=== PATIENT | female | born 1955 | race Hispanic/Latino ===

== ENCOUNTER → 2018-01-10 | Outpatient (CLI) | payer OTHER ==
--- NOTE | 2018-01-10 15:01 | Diagnostic Imaging Report ---
EXAM: Transabdominal and Transvaginal Pelvic Ultrasound INDICATION: \S\PELVIC PAIN COMPARISON: None TECHNIQUE: Grayscale transverse and sagittal transabdominal and transvaginal images were obtained of the pelvis. Transvaginal imaging was medically necessary to better evaluate the endometrium and the adnexa. CLINICAL HISTORY: 62 year old A0; last menstrual period: Hysterectomy in 1995. FINDINGS: Uterus is surgically absent. Right ovary: Not visualized. Left ovary: Not visualized. Adnexa: Normal Cul-de-sac: No free fluid IMPRESSION: Unremarkable pelvic ultrasound exam. Status post hysterectomy. Ovaries are not visualized, limiting evaluation. Signed by: Dr. Hitesh Peraza MD on 01/10/2018 2:58 PM
== END ==
LOC: US 12:53
PROVIDERS: ATTEND Obstetrics & Gynecology Obstetrics
DX: R10.2 Pelvic and perineal pain (principal)
CPT/HCPCS: 76830; 76856

== ENCOUNTER → 2018-02-10 | Outpatient (CLI) | payer OTHER ==
--- NOTE | 2018-02-10 15:57 | Diagnostic Imaging Report ---
#[id number] - MGSCRBIL #BILATERAL DIGITAL SCREENING MAMMOGRAM WITH CAD: 02/10/2018 CLINICAL: Routine screening. Comparison is made to exams dated: 02/10/2017 mammogram and 11/11/2015 mammogram - [facility]. Current study contains 4 films. There are scattered fibroglandular elements in both breasts. Current study was also evaluated with a Computer Aided Detection (CAD) system. There are benign intramammary nodes in both breasts. There also are benign scattered calcifications in both breasts. No significant masses, calcifications, or other findings are seen in either breast. There has been no significant interval change. IMPRESSION: BENIGN There is no mammographic evidence of malignancy. A 1 year screening mammogram is recommended. The patient will be notified by letter of the results. Johnny kuo/caty:02/10/2018 14:41:59 Recapper: Rosangela GILLIAM(Gigi)(M), [facility] letter sent: Compared to Prior B9 Mammogram BI-RADS: 2 Benign
== END ==
LOC: MAMMO 11:48
PROVIDERS: ATTEND Obstetrics & Gynecology Obstetrics
DX: Z12.31 Encounter for screening mammogram for malignant neoplasm of breast (principal)
CPT/HCPCS: 77067

== ENCOUNTER 2018-07-11 17:29 | Emergency (ER) | payer BC, OTHER ==
[~2018-07-11] VITALS: Ht 157.5 cm; Wt 90.7 kg
--- OUTSIDE RECORDS SUMMARY | 2018-07-11 17:32 | XMS REPORT ---
Author Author [facility] Address Unknown Phone Unavailable Care Team Providers Care Job Printer Apprentice Name Role Phone Srinivas SAHNI Unavailable Unavailable ALEXANDER CUNNINGHAM Unavailable Unavailable Problems This patient has no known problems. Allergies, Adverse Reactions, Alerts This patient has no known allergies or adverse reactions. Medications This patient has no known medications. Results Test Description Test Time Test Comments Text Results Atomic Results Result Comments MAMMOGRAPHY DIGITAL SCR BILAT 2018-02-10 12:42:00 [place] [address] Patient Name: PHILIPPE MITCHELL MR #: [id number] : 1955 Age/Sex: 62/F Req #: [id number] Adm Physician: Ordered by: ANNAMARIE SAHNI M.D. Report #: [id number] Location: MAMMO Room/Bed: Procedure: MG/MAMMOGRAPHY DIGITAL SCR BILAT Exam Date: 02/10/18 Exam Time: 1216 REPORT STATUS: Signed #[id number] - MGSCRBIL #BILATERAL DIGITAL SCREENING MAMMOGRAM WITH CAD: 02/10/2018 CLINICAL: Routine screening. Comparison is made to exams dated: 02/10/2017 mammogram and 11/11/2015 mammogram - [facility]. Current study contains 4 films. There are scattered fibroglandular elements in both breasts. Current study was also evaluated with a Computer Aided Detection (CAD) system. There are benign intramammary nodes in both breasts. There also are benign scattered calcifications in both breasts. No significant masses, calcifications, or other findings are seen in either breast. There has been no significant interval change. IMPRESSION: BENIGN There is no mammographic evidence of malignancy. A 1 year screening mammogram is recommended. The patient will be notified by letter of the results. Astrid kuo/princess:02/10/2018 14:41:59 Umbrella Frame Maker: Rosangela GILLIAM(R)(Nany), [facility] letter sent: Compared to Prior B9 Mammogram BI-RADS: 2 Benign Dictated By: ASTRID SAXENA DO 1441 Transcribed By: PRINCESS on 02/10/18 1441 COPY TO: ANNAMARIE SAHNI M.D. US TRANSVAGINAL 2018-01-10 14:37:00 [place] [address] Patient Name: PHILIPPE MITCHELL MR #: [id number] : 1955 Age/Sex: 62/F Req #: [id number] Adm Physician: Ordered by: ANNAMARIE SAHNI M.D. Report #: [id number] Location: Room/Bed: Procedure: [id number] US/US TRANSVAGINAL Exam Date: Exam Time: REPORT STATUS: Signed EXAM: Transabdominal and Transvaginal Pelvic Ultrasound INDICATION: COMPARISON: None TECHNIQUE: Grayscale transverse and sagittal transabdominal and transvaginal images were obtained of the pelvis. Transvaginal imaging was medically necessary to better evaluate the endometrium and the adnexa. CLINICAL HISTORY: 62 year old A0; last menstrual period: Hysterectomy in 1995. FINDINGS: Uterus is surgically absent. Right ovary: Not visualized. Left ovary: Not visualized. Adnexa: Normal Cul-de-sac: No free fluid IMPRESSION: Unremarkable pelvic ultrasound exam. Status post hysterectomy. Ovaries are not visualized, limiting evaluation. Signed by: Dr. Hitesh Márquez MD on 01/10/2018 2:58 PM Dictated By: HITESH MÁRQUEZ MD 57 Transcribed By: USHA on 01/10/181457 COPY TO: ANNAMARIE SAHNI M.D. US PELVIS COMPLETE NON OB 2018-01-10 14:37:00 [place] [address] Patient Name: PHILIPPE MITCHELL MR #: [id number] : 1955 Age/Sex: 62/F Req #: [id number] Adm Physician: Ordered by: ANNAMARIE SAHNI M.D. Report #: [id number] Location: Room/Bed: Procedure: [id number] US/US PELVIS COMPLETE NON OB Exam Date: Exam Time: REPORT STATUS: Signed EXAM: Transabdominal and Transvaginal Pelvic Ultrasound INDICATION: COMPARISON: None TECHNIQUE: Grayscale transverse and sagittal transabdominal and transvaginal images were obtained of the pelvis. Transvaginal imaging was medically necessary to better evaluate the endometrium and the adnexa. CLINICAL HISTORY: 62 year old A0; last menstrual period: Hysterectomy in 1995. FINDINGS: Uterus is surgically absent. Right ovary: Not visualized. Left ovary: Not visualized. Adnexa: Normal Cul-de-sac: No free fluid IMPRESSION: Unremarkable pelvic ultrasound exam. Status post hysterectomy. Ovaries are not visualized, limiting evaluation. Signed by: Dr. Hitesh Márquez MD on 01/10/2018 2:58 PM Dictated By: HITESH MÁRQUEZ MD 57 Transcribed By: USHA on 01/10/181457 COPY TO: ANNAMARIE SAHNI M.D. MAMMOGRAPHY DIGITAL SCR BILAT [place] [address] Patient Name: PHILIPPE MITCHELL MR #: [id number] : 1955 Age/Sex: 61/F Req #: [id number] Adm Physician: Ordered by: ALEXANDER CUNNINGHAM MD Report #: [id number] Location: MAMMO Room/Bed: Procedure: [id number] MG/MAMMOGRAPHY DIGITAL SCR BILAT Exam Date: 02/10/17 Exam Time: 1133 REPORT STATUS: Signed #[id number] - MGSCRBIL #BILATERAL DIGITAL SCREENING MAMMOGRAM WITH CAD: 02/10/2017 CLINICAL: Routine screening. Comparison is made to exams dated: 11/11/2015 mammogram and 10/03/2014 mammogram - [facility]. Current study contains 4 films. There are scattered fibroglandular elements in both breasts. Current study was also evaluated with a Computer Aided Detection (CAD) system. There are benign intramammary nodes in both breasts. There also are benign scattered calcifications in both breasts. No significant masses, calcifications, or other findings are seen in either breast. There has been no significant interval change. IMPRESSION: BENIGN There is no mammographic evidence of malignancy. A 1 year screening mammogram is recommended. The patient will be notified by letter of the results. Astrid kuo/princess:02/27/2017 15:17:15 Umbrella Frame Maker: Rosangela RÍOS)(Nany), [facility] letter sent: Compared to Prior B9 Mammogram BI-RADS: 2 Benign Dictated By: ASTRID SAXENA DO 1517 Transcribed By: PRINCESS on 02/27/17 7937 COPY TO: ALEXANDER CUNNINGHAM MD
[2018-07-11 19:37] LABS: BASOPHILS # (AUTO) 0.1 (0.0-0.1); BASOPHILS % 0.5 % (0.0-1.0); EOSINOPHILS # (AUTO) 1.2 (0.0-0.4); HEMOGLOBIN 15.7 g/dL (12.0-16.0); LYMPHOCYTES # (AUTO) 3.9 (1.0-3.2); LYMPHOCYTES % 33.9 % (18.0-39.1); MEAN CORPUSCULAR HEMOGLOBIN 33.1 pg (28-32); MEAN CORPUSCULAR HGB CONC 33.4 g/dL (31-35); MEAN CORPUSCULAR VOLUME 99.2 fL (81-99); MONOCYTES # (AUTO) 0.8 (0.2-0.8); MONOCYTES % 6.8 % (4.4-11.3); NEUTROPHILS # (AUTO) 5.6 (2.1-6.9); NEUTROPHILS % 48.6 % (38.7-80.0); PLATELET COUNT 238 x10e3/uL (140-360); RED BLOOD COUNT 4.74 x10e6/uL (3.6-5.1); RED CELL DISTRIBUTION WIDTH 11.9 % (11.7-14.4)
[2018-07-11 19:41] LABS: CLARITY,URINE SL CLOUDY (CLEAR); COLOR,URINE YELLOW (YELLOW); LEUKOCYTE ESTERASE ,URINE TRACE (NEGATIVE); NITRITE,URINE NEGATIVE (NEGATIVE)
[2018-07-11 19:42] LABS: BILIRUBIN,URINE NEGATIVE (NEGATIVE); KETONES,URINE TRACE (NEGATIVE); PROTEIN,URINE DIPSTICK NEGATIVE (NEGATIVE); URINE UROBILINOGEN 0.2 mg/dL (0.2 - 1)
[2018-07-11 19:52] LABS: ALANINE AMINOTRANSFERASE 40 IU/L (0-55); ALBUMIN 3.8 g/dL (3.5-5.0); ALBUMIN/GLOBULIN RATIO 1.1 (0.8-2.0); ALKALINE PHOSPHATASE 65 IU/L (40-150); AMYLASE 56 U/L (25-125); ANION GAP 18.1 mmol/L (8-16); BACTERIA,URINE MODERATE /HPF; BLOOD UREA NITROGEN 6 mg/dL (7-26); BUN/CREATININE RATIO 10 (6-25); CALCIUM 10.1 mg/dL (8.4-10.2); CARBON DIOXIDE 25 mmol/L (22-29); CHLORIDE 102 mmol/L (98-107); CREATINE KINASE 46 IU/L (29-168); CREATININE, SERUM 0.62 mg/dL (0.57-1.11); EPITHELIAL CELLS,URINE FEW /LPF; EST GLOMERULAR FILTRATION RATE > 60 ML/MIN (60-); GLUCOSE 115 mg/dL (74-118); LIPASE 33 U/L (8-78); MUCUS,URINE FEW (RARE); POTASSIUM 4.1 mmol/L (3.5-5.1); RBC,URINE 0-5 /HPF (0-5); SODIUM 141 mmol/L (136-145)
--- NOTE | 2018-07-11 20:52 | Diagnostic Imaging Report ---
EXAM: Right Upper Quadrant Ultrasound INDICATION: ^ABD PAIN COMPARISON: None. TECHNIQUE: Transverse and longitudinal images of the right upper abdomen were obtained. FINDINGS: Liver: Size: 15.2 cm in the right midclavicular line, normal Appearance: Increased echogenicity, smooth contour Mass: No focal masses Gallbladder: Stones/Sludge: None Wall: 0.2 cm Appearance: No pericholecystic fluid or hydrops. Sonographic Nina's Sign: Negative Bile Ducts: Intrahepatic Ducts: No dilatation Extrahepatic Ducts: Common bile duct measures 0.4 cm, no dilatation Pancreas: Visualized portions of the pancreatic head, neck and proximal body are normal. Right Kidney: Size: 10.1 x 4.8 x 4.1 cm Echogenicity: Normal Parenchymal thickness: Normal Collecting system: No hydronephrosis Stones: None Cyst/Mass: None Vessels: Aorta: Visualized portions are normal Inferior Vena Cava: Visualized portions are normal Main Portal Vein: 0.7 cm, normal size with hepatopetal flow. Free Fluid: No ascites or pleural effusion IMPRESSION: 1. Diffuse hepatic steatosis without focal mass. 2. Normal gallbladder. Signed by: Dr. Mack Monroe M.D. on 07/11/2018 8:48 PM
[2018-07-11 22:16] VITALS: BP 150/78
== END 2018-07-11 22:40 | disposition home or self-care (01) ==
LOC: ER 17:29
DX: R10.11 Right upper quadrant pain (principal); R11.0 Nausea; N30.90 Cystitis, unspecified without hematuria; E11.9 Type 2 diabetes mellitus without complications; E03.9 Hypothyroidism, unspecified; E78.5 Hyperlipidemia, unspecified
CPT/HCPCS: 36415; 76705; 80053; 81001; 82150; 82550; 82553; 83690; 84484; 85025; 93005; 99283

== ENCOUNTER → 2019-11-14 | Outpatient (CLI) | payer MEDICARE, OTHER | LOC: MAMMO 07:57 | PROVIDERS: ATTEND Internal Medicine | DX: Z12.31 Encounter for screening mammogram for malignant neoplasm of breast (principal) | CPT/HCPCS: 77067 ==

== ENCOUNTER → 2024-03-22 | Outpatient (REF) | payer MEDICARE, OTHER | LOC: MAMMO 13:07 | PROVIDERS: ATTEND Student in an Organized Health Care Education/Training Program | DX: Z12.31 Encounter for screening mammogram for malignant neoplasm of breast (principal) | CPT/HCPCS: 77067 ==

== ENCOUNTER → 2024-10-02 | Outpatient (REF) | payer MEDICARE, OTHER ==
[~2024-10-02] MED LIST: FENTANYL CITRATE/PF 100MCG/2 ML INJ ONE; LIDOCAINE HCL 1% 30ML-PF VIAL ONE; MIDAZOLAM HCL 2 MG/2 ML VIAL ONE; SODIUM CHLORIDE 0.9% 250ML 250 ML ONE
[2024-10-02 09:01] LABS: BASOPHILS # (AUTO) 0.1 (0.0-0.1); BASOPHILS % 0.6 % (0.0-1.0); EOSINOPHILS # (AUTO) 2.2 (0.0-0.4); EOSINOPHILS % 22.7 % (0.0-6.0); HEMATOCRIT 46.6 % (34.2-44.1); HEMOGLOBIN 15.6 g/dL (12.0-16.0); LYMPHOCYTES # (AUTO) 3.5 (1.0-3.2); MEAN CORPUSCULAR HGB CONC 33.5 g/dL (31-35); MEAN CORPUSCULAR VOLUME 98.5 fL (81-99); MONOCYTES # (AUTO) 0.8 (0.2-0.8); MONOCYTES % 8.2 % (4.4-11.3); NEUTROPHILS # (AUTO) 3.2 (2.1-6.9); NEUTROPHILS % 32.3 % (38.7-80.0); PLATELET COUNT 168 x10e3/uL (140-360); RED BLOOD COUNT 4.73 x10e6/uL (3.6-5.1); RED CELL DISTRIBUTION WIDTH 10.9 % (11.7-14.4); WHITE BLOOD COUNT 9.82 x10e3/uL (4.8-10.8)
[2024-10-02 09:25] LABS: INR 1.05; PROTHROMBIN TIME 14.3 seconds (11.9-14.5)
[2024-10-02 09:26] LABS: PARTIAL THROMBOPLASTIN TIME 28.1 seconds (23.8-35.5)
[2024-10-02 09:31] LABS: ALBUMIN 4.2 g/dL (3.5-5.0); ALBUMIN/GLOBULIN RATIO 1.2 (0.8-2.0); ANION GAP 14.4 mmol/L (8-16); BILIRUBIN,TOTAL 1.3 mg/dL (0.2-1.2); CALCIUM 9.5 mg/dL (8.4-10.2); CREATININE, SERUM 0.64 mg/dL (0.57-1.11); TOTAL PROTEIN 7.8 g/dL (6.5-8.1)
[2024-10-02 09:38] LABS: POTASSIUM 3.4 mmol/L (3.5-5.1)
[2024-10-02 11:49] LABS: EOSINOPHILS % (MANUAL) 22 % (0-7); LYMPHOCYTES % (MANUAL) 38 % (19-48); MONOCYTES % (MANUAL) 5 % (3.4-9.0); NEUTROPHILS % (MANUAL) 30 % (40-74); REACTIVE LYMPHOCYTES 5
[2024-10-02 11:50] LABS: PLATELET ESTIMATE ADEQUATE; PLATELET MORPHOLOGY COMMENT NORMAL; RBC MORPHOLOGY COMMENT NORMAL
== END ==
LOC: CT 08:24
PROVIDERS: ATTEND Internal Medicine Hematology & Oncology
DX: D72.10 Eosinophilia, unspecified (principal); D75.1 Secondary polycythemia
CPT/HCPCS: 36415; 77012; 80053; 85025; 85610; 85730; J2003; J2250; J3010; J7050; 38222; 99152